=== PATIENT | male | born 1960 | race Caucasian/White ===

== ENCOUNTER 2024-12-30 08:21 | Emergency (ER) | payer OTHER ==
[2024-12-30] MEDS ORDERED: ONDANSETRON 4 MG/2 ML VIAL ONE (09:46)
[2024-12-30] MEDS ORDERED: NA CHLORIDE 0.9% 1,000 ML ONE (09:47)
[2024-12-30] MEDS ORDERED: FAMOTIDINE 20 MG/2 ML VIAL IV ONE (09:47)
[2024-12-30] MEDS ORDERED: MORPHINE 4 MG/ML SYR ONE (09:47)
[2024-12-30] MEDS ORDERED: HYDROMORPHONE HCL 1 MG/ML INJ ONE (10:27)
[2024-12-30 10:29] LABS: Albumin 3.5 g/dL (3.4-5.0); Albumin/Globulin Ratio 0.8 (1.1-1.8); Anion Gap 9.8 mEq/L (5.0-15.0); Bilirubin Direct 0.2 mg/dL (0-0.2); Bilirubin Indirect, Calculated 0.9 mg/dL (0.2-0.8); Bilirubin Total 1.1 mg/dL (0.2-1.0); Globulin 4.2 g/dL (2.3-3.5); Magnesium 2.2 mg/dL (1.6-2.4); Potassium 3.8 mEq/L (3.5-5.1); Protein, Total 7.7 g/dL (6.4-8.2); Troponin High Sensitivity 4.1 pg/mL (<58.9)
[2024-12-30 10:34] LABS: Absolute Basophils 0.1 K/uL (0-0.5); Absolute Eosinophils 0.1 K/uL (0-0.5); Absolute Lymphocytes (CBC) 2.6 K/uL (0.7-4.9); Absolute Monocytes 1.1 K/uL (0.1-1.3); Absolute Neutrophil 6.3 K/uL (1.8-8.0); Basophils % 0.6 % (0-1.3); Eosinophils % 1.4 % (0-4.4); Hematocrit 46.2 % (39.6-49.0); Hemoglobin 16.3 g/dL (13.6-17.9); Lymphocytes % 25.3 % (15.3-44.8); MCH 32.6 pg (27.0-35.0); MCHC 35.2 g/dL (32.0-36.0); MCV 92.6 fL (80-100); MPV 8.8 fL (7.6-11.3); Monocytes % 11.1 % (3.3-12.3); Neutrophils % 61.6 % (41.7-73.7); Nucleated Red Blood Cells % 0.1 % (0-0); Platelets 229 thou/uL (152-406); RBC Red Blood Cell Count 4.99 M/uL (4.33-5.43); Red Cell Distribution Width 13.7 % (12.1-15.2)
[2024-12-30 10:39] LABS: PT Prothrombin Time 12.8 SECONDS (9.4-12.5); Protime INR 1.22
--- NOTE | 2024-12-30 10:43 | RAD REPORT ---
Procedure: Chest Single View HISTORY: Abdominal pain COMPARISON: none FINDINGS: The lungs appear clear of acute infiltrate. No significant pleural effusion noted. The heart is normal size. IMPRESSION: No acute abnormality is displayed.
--- NOTE | 2024-12-30 11:52 | RAD REPORT ---
EXAMINATION: CT ABDOMEN AND PELVIS WITH CONTRAST CLINICAL INDICATION: Abdominal pain TECHNIQUE: CT abdomen and pelvis was performed, after the administration of 100 cc Isovue-300.. Sagit renetta and coronal reconstructions were obtained. One or more of the following dose reduction techniques were used: Automated exposure control, adjustment of the mA and kV according to patient si ze, and iterative reconstruction. Unless otherwise specified, incidental findings do not require dedicated imaging follow-up. [id number]. Oral contrast was not given which limits evaluation of bowel and appendix. COMPARISON: .None FINDINGS: Fatty liver. The wall of the second portion of the duodenum is thickened with moderate stranding in the adjacent f at. No free air. Mild stranding adjacent to the pancreatic head. Adrenals and right kidney unremarkable Small left renal calculus. No hydronephrosis. Normal appendix. Small inguinal hernias No evidence of diverticulitis. Small umbilical hernia : IMPRESSION: Moderate stranding adjacent to the second portion of the duodenum with a thickened wall. Most likely this represents duodenal inflammation. The mild stranding adjacent to the pancreas probably is secondary inflammation. Direct visualization of the duodenum is recommended.
--- NOTE | 2024-12-30 12:22 | RAD REPORT ---
EXAM: Right upper quadrant ultrasound. CLINICAL HISTORY: Abdominal pain COMPARISON: None FINDINGS: A gallstone is not seen. Gallbladder wall not thickened. Biliary tree normal caliber IMPRESSION: No significant abnormalities displayed
[2024-12-30] MEDS ORDERED: MAGNES/ALUMIN/SIMET 30ML UCUP ONE (12:59)
[2024-12-30] MEDS ORDERED: LIDOCAINE VISCOUS 2% 10ML ORAL SOLN ONE (12:59)
--- NOTE | 2024-12-30 13:38 | ER ---
Nurse's Notes [facility] Name: Andrés Batres Age: 64 yrs Sex: Male : 1960 Arrival Date: 12/30/2024 Time: 08:21 Bed 20 Private MD: Diagnosis: Epigastric pain Presentation: 12/30 08:36 Chief complaint: Patient states: Epigastric pain since Monday since N/V/D. Coronavirus ll1 screen: Client denies travel out of the [place] in the last 14 days. At this time, the client does not indicate any symptoms associated with coronavirus-19. Ebola Screen: Patient denies travel to an Ebola-affected area in the 21 days before illness onset. Initial Sepsis Screen: Does the patient meet any 2 criteria? No. Patient's initial sepsis screen is negative. Does the patient have a suspected source of infection? No. Patient's initial sepsis screen is negative. Risk Assessment: Do you want to hurt yourself or someone else? Patient reports no desire to harm self or others. Onset of symptoms was December 27, 2024. 08:36 Method Of Arrival: Ambulatory ll1 08:36 Acuity: JENELLE 3 ll1 Triage Assessment: 12/31 08:36 General: Appears uncomfortable, Behavior is calm, cooperative, appropriate for age. ll1 Pain: Complains of pain in epigastric area. GI: Reports upper abdominal pain, diarrhea, nausea, vomiting. Historical: - Allergies: 12/30 08:36 Compazine; ll1 - PMHx: 08:36 Diabetes mellitus; ll1 - PSHx: 08:36 Major L arm surgeries; ll1 - Immunization history:: Adult Immunizations up to date. - Infectious Disease History:: Denies. - Social history:: Smoking status: Patient denies any tobacco usage or history of. Screenin:30 [facility] ED Fall Risk Assessment (Adult) History of falling in the last 3 months, aa5 including since admission No falls in past 3 months (0 pts) Confusion or Disorientation No (0 pts) Intoxicated or Sedated No (0 pts) Impaired Gait No (0 pts) Mobility Assist Device Used No (0 pt) Altered Elimination No (0 pt) Score/Fall Risk Level 0 - 2 = Low Risk Oriented to surroundings, Maintained a safe environment, Educated pt \T\ family on fall prevention, incl call for assistance when getting out of bed, Assessed \T\ reinforced patient's understanding of fall precautions. Abuse screen: Denies threats or abuse. Nutritional screening: No deficits noted. Tuberculosis screening: No symptoms or risk factors identified. Assessment: 10:30 General: Appears uncomfortable, Behavior is calm, cooperative. Pain: Complains of pain aa5 in epigastric area, right upper quadrant, left upper quadrant, right lower quadrant and left lower quadrant Pain currently is 9 out of 10 on a pain scale. Quality of pain is described as crampy, sharp, Pain began 2-3 days ago. Is intermittent, lasting a few minutes. Noted to be guarding, moaning. Neuro: Level of Consciousness is awake, alert, obeys commands, Oriented to person, place, time, situation. Cardiovascular: Heart tones S1 S2 present Patient's skin is warm and dry. Rhythm is sinus rhythm. Respiratory: Airway is patent Respiratory effort is even, unlabored, Respiratory pattern is regular, symmetrical. GI: Abdomen is round non-distended, Bowel sounds present X 4 quads. Abd is soft and non tender X 4 quads. Reports diarrhea, nausea, vomiting. : No signs and/or symptoms were reported regarding the genitourinary system. EENT: No signs and/or symptoms were reported regarding the EENT system. Derm: Skin is pink, warm \T\ dry. Musculoskeletal: Range of motion: intact in all extremities. 10:45 Reassessment: Patient is alert, oriented x 3, equal unlabored respirations, skin aa5 warm/dry/pink. Patient states feeling better. 10:47 Reassessment: Pt to CT scan. aa5 11:50 Reassessment: Patient is alert, oriented x 3, equal unlabored respirations, skin aa5 warm/dry/pink. Patient states feeling better. 12:54 Reassessment: Patient appears in no apparent distress at this time. Patient and/or kj2 family updated on plan of care and expected duration. Pain level reassessed. Patient is alert, oriented x 3, equal unlabored respirations, skin warm/dry/pink. 13:50 Reassessment: Patient appears in no apparent distress at this time. Patient and/or kj2 family updated on plan of care and expected duration. Pain level reassessed. Patient is alert, oriented x 3, equal unlabored respirations, skin warm/dry/pink. Vital Signs: 08:36 BP 159 / 95; Pulse 87; Resp 17; Temp 97.5; Pulse Ox 100% ; Weight 113.4 kg; Height 6 ll1 ft. 0 in. ; Pain 9/10; 12:55 BP 154 / 86; Pulse 74; Resp 18; Pulse Ox 99% on R/A; kj2 13:50 BP 148 / 82; Pulse 62; Resp 20; Temp 98; Pulse Ox 100% on R/A; kj2 08:36 Body Mass Index 33.91 (113.40 kg, 182.88 cm) ll1 08:36 Pain Scale: Adult ll1 ED Course: 08:23 Patient arrived in ED. im 08:26 Bryant Cordoba PA is PHCP. cp 08:26 Vinny Loza DO is Attending Physician. cp 08:35 Arm band placed on. ll1 08:38 Triage completed. ll1 08:56 XRAY Chest (1 view) In Process Unspecified. EDMS 09:11 US Abdomen Limited In Process Unspecified. EDMS 10:00 No provider procedures requiring assistance completed. Inserted saline lock: 22 gauge kb3 in right forearm, using aseptic technique. Blood collected. Flushed with 10 mL NS Missed attempt(s): 20 gauge in right antecubital area. 10:21 Yamilex Vallecillo, RN is Primary Nurse. aa5 10:30 Patient has correct armband on for positive identification. Bed in low position. Call aa5 light in reach. Side rails up X2. Adult w/ patient. Client placed on continuous cardiac and pulse oximetry monitoring. NIBP monitoring applied. threat monitoring analyst on. Pulse ox on. NIBP on. 10:35 EKG done, by ED staff, reviewed by Bryant GIBBS. aa5 10:42 CT Abd/Pelvis - IV Contrast Only In Process Unspecified. EDMS 12:05 Report given to EMERY Parks. aa5 12:15 Provided Education on: call light. kj2 13:37 Brayan Richardson MD is Referral Physician. cp 13:52 IV discontinued, intact, bleeding controlled, No redness/swelling at site. Pressure kj2 dressing applied. Administered Medications: 10:03 CANCELLED (Physician Discretion): morphineor iv 4 mg IVP once over 4 mins cp 10:08 Drug: NS 0.9% IV 1000 ml IV at 1 bolus Per protocol; to be given as a bolus over 60 kb3 minutes Route: IV; Rate: 1 bolus; Site: right antecubital; 13:52 Follow up: IV Status: Completed infusion; IV Intake: 1000ml kj2 10:08 Drug: Ondansetron IVP 4 mg IVP once; over 2 minutes Route: IVP; Site: right antecubital;kb3 10:35 Follow up: Response: No adverse reaction aa5 10:08 Drug: Famotidine IVP 20 mg IVP once; dilute with 10 mL 0.9% NaCl; give over 2 minutes kb3 Route: IVP; Site: right forearm; 10:35 Follow up: Response: No adverse reaction aa5 10:35 Drug: HYDROmorphone IVP 1 mg IVP once Route: IVP; Site: right forearm; aa5 10:45 Follow up: Response: No adverse reaction; Pain is decreased aa5 13:00 Drug: GI Cocktail without - (Maalox PO 30 ml, Lidocaine Mucous Membrane 2 % 15 kj2 ml) PO once Route: PO; 13:52 Follow up: Response: No adverse reaction kj2 Medication: 10:59 VIS not applicable for this client. aa5 Intake: 13:52 IV: 1000ml; Total: 1000ml. kj2 Outcome: 13:37 Discharge ordered by MD. cp 13:52 Discharged to home ambulatory, with family, kj2 13:52 Condition: stable 13:52 Discharge instructions given to patient, family, Instructed on discharge instructions, follow up and referral plans. medication usage, Demonstrated understanding of instructions, follow-up care, medications, Prescriptions given X 3, 13:58 Patient left the ED. kj2 Signatures: Dispatcher [employer] EDMS Yamilex Vallecillo RN RN aa5 Bryant Cordoba PA PA cp Jax Vinson RN RN ll1 Shiela Tanner RN RN kb3 Susu De Santiago Krystal, RN RN kj2 Corrections: (The following items were deleted from the chart) 10:52 10:35 HYDROmorphone IVP 1 mg IVP in right antecubital aa5 aa5
--- NOTE | 2024-12-30 13:38 | EDPHYS ---
Physician Documentation [facility] Name: Andrés Batres Age: 64 yrs Sex: Male : 1960 Arrival Date: 12/30/2024 Time: 08:21 Bed 20 Private MD: ED Physician Vinny Loza HPI: 12/30 08:40 This 64 yrs old Male presents to ER via Ambulatory with complaints of Abdominal Pain, cp Epigastric Pain, Vomiting. 08:40 The patient presents with abdominal pain in the epigastric area, in the upper abdomen. cp Onset: The symptoms/episode began/occurred 3 day(s) ago. The symptoms radiate to back. Associated signs and symptoms: Pertinent positives: nausea and vomiting, diarrhea. The symptoms are described as constant. Historical: - Allergies: 08:36 Compazine; ll1 - PMHx: 08:36 Diabetes mellitus; ll1 - PSHx: 08:36 Major L arm surgeries; ll1 - Immunization history:: Adult Immunizations up to date. - Infectious Disease History:: Denies. - Social history:: Smoking status: Patient denies any tobacco usage or history of. ROS: 08:45 Constitutional: Negative for body aches, chills, fever, poor PO intake, cp 08:45 Eyes: Negative for injury, pain, redness, and discharge, cp 08:45 Cardiovascular: Negative for chest pain, edema, palpitations, 08:45 Respiratory: Negative for cough, shortness of breath, wheezing, 08:45 Abdomen/GI: Positive for abdominal pain, nausea, vomiting, and diarrhea, of the epigastric area, 08:45 Back: Positive for radiated pain, cp 08:45 : Negative for urinary symptoms, testicular pain 08:45 Neuro: Negative for altered mental status, dizziness, headache, numbness, syncope, weakness, 08:45 All other systems are negative, Exam: 09:00 Constitutional: The patient appears in no acute distress, alert, awake, cp non-diaphoretic, non-toxic, well developed, well nourished, uncomfortable, 09:00 Head/Face: Normocephalic, atraumatic. cp 09:00 Eyes: Periorbital structures: appear normal, Conjunctiva: normal, no exudate, no injection, Sclera: no appreciated abnormality, Lids and lashes: appear normal, bilaterally, 09:00 ENT: External ear(s): are unremarkable, Nose: is normal, Mouth: Lips: moist, Oral mucosa: moist, Posterior pharynx: Airway: no evidence of obstruction, patent, swelling, is not appreciated, erythema, is not appreciated, exudate, is not appreciated, 09:00 Chest/axilla: Inspection: normal, 09:00 Cardiovascular: Rate: normal, Rhythm: regular, Edema: is not appreciated, JVD: is not appreciated, 09:00 Respiratory: the patient does not display signs of respiratory distress, Respirations: normal, no use of accessory muscles, no retractions, labored breathing, is not present, Breath sounds: are clear throughout, no decreased breath sounds, no stridor, no wheezing, 09:00 Abdomen/GI: Inspection: abdomen appears normal, Bowel sounds: active, all quadrants, Palpation: soft, in all quadrants, severe abdominal tenderness, in the epigastric area, rebound tenderness, is not appreciated, involuntary guarding, is not appreciated, 09:00 Back: CVA tenderness, is absent, 09:00 Neuro: Orientation: to person, place \T\ time. Mentation: is normal, Cerebellar function: is grossly normal, Motor: moves all fours, strength is normal, Sensation: is normal, 10:42 ECG was reviewed by the Attending Physician. Vital Signs: 08:36 BP 159 / 95; Pulse 87; Resp 17; Temp 97.5; Pulse Ox 100% ; Weight 113.4 kg; Height 6 ll1 ft. 0 in. ; Pain 9/10; 12:55 BP 154 / 86; Pulse 74; Resp 18; Pulse Ox 99% on R/A; kj2 13:50 BP 148 / 82; Pulse 62; Resp 20; Temp 98; Pulse Ox 100% on R/A; kj2 08:36 Body Mass Index 33.91 (113.40 kg, 182.88 cm) ll1 08:36 Pain Scale: Adult ll1 MDM: 08:38 Medical Screening Exam initiated cp 09:00 Differential diagnosis: acute coronary syndrome, appendicitis, bowel obstruction, cp cholecystitis, Cholelithiasis, gastritis, gastroesophageal reflux disease, GI Bleed, non-specific abd pain, pancreatitis, Peptic Ulcer Disease, Perf. Duodenal Ulcer, Perf. Gastric Ulcer. 13:36 Data reviewed: vital signs, nurses notes, lab test result(s), EKG, radiologic studies, cp CT scan, plain films, ultrasound, and as a result, I will discharge patient. 13:36 Consideration of Admission/Observation Escalation of care including cp admission/observation considered. I considered the following discharge prescriptions or medication management in the emergency department Medications were administered in the Emergency Department. See MAR. Care significantly affected by the following chronic conditions: Diabetes. Counseling: I had a detailed discussion with the patient and/or guardian regarding the historical points, exam findings, and any diagnostic results supporting the discharge/admit diagnosis, lab results, radiology results, the need for outpatient follow up, for definitive care, a patient safety officer, to return to the emergency department if symptoms worsen or persist or if there are any questions or concerns that arise at home. Response to treatment: the patient's symptoms have markedly improved after treatment, and as a result, I will discharge patient. Special discussion: Based on the patient's Hx, exam, and Dx evaluation, there is no indication for emergent surgery or inpatient Tx. It is understood by the patient/guardian that if the Sx's persist or worsen they need to return immediately for re-evaluation. 12/30 08:43 Order name: Basic Metabolic Panel; Complete Time: 11: cp 12/30 11:03 Interpretation: Normal except: NA 135; GLUC 169. cp 12/30 08:43 Order name: CBC with Diff; Complete Time: 11: cp 12/30 11:03 Interpretation: Reviewed. cp 12/30 08:43 Order name: LFT's; Complete Time: 11: cp 12/30 11:03 Interpretation: Normal except: BILIT 1.1; IBILI, CALC 0.9; GLOB 4.2; A/G 0.8. cp 12/30 08:43 Order name: Magnesium; Complete Time: 11: cp 12/30 08:43 Order name: PT-INR; Complete Time: 11: cp / 08:43 Order name: Troponin HS; Complete Time: 11: cp / 08:43 Order name: Lipase; Complete Time: 11: cp / 11:03 Interpretation: Reviewed. cp 12/30 08:43 Order name: XRAY Chest (1 view); Complete Time: 11: cp 12/30 08:43 Order name: US Abdomen Limited; Complete Time: 12:23 cp 0203 12:23 Interpretation: Report reviewed. cp 02 08:43 Order name: CT Abd/Pelvis - IV Contrast Only; Complete Time: 12:23 cp 12/30 08:43 Order name: Cardiac monitoring; Complete Time: 10:21 cp 12/30 08:43 Order name: EKG - Nurse/Tech; Complete Time: 10:41 cp 12/30 08:43 Order name: IV Saline Lock; Complete Time: 10:36 cp 12/30 08:43 Order name: Labs collected and sent; Complete Time: 10:36 cp 12/30 08:43 Order name: O2 Per Protocol; Complete Time: 10:21 cp 12/30 08:43 Order name: O2 Sat Monitoring; Complete Time: 10:21 cp 12/30 08:43 Order name: NPO; Complete Time: 09:44 cp EC:42 Rate is 80 beats/min. Rhythm is regular. PA interval is normal. QRS interval is normal. cp QT interval is normal. T waves are Inverted in lead aVR. Interpreted by me. Reviewed by me. Administered Medications: 10:03 CANCELLED (Physician Discretion): morphineor iv 4 mg IVP once over 4 mins cp 10:08 Drug: NS 0.9% IV 1000 ml IV at 1 bolus Per protocol; to be given as a bolus over 60 kb3 minutes Route: IV; Rate: 1 bolus; Site: right antecubital; 13:52 Follow up: IV Status: Completed infusion; IV Intake: 1000ml kj2 10:08 Drug: Ondansetron IVP 4 mg IVP once; over 2 minutes Route: IVP; Site: right antecubital;kb3 10:35 Follow up: Response: No adverse reaction aa5 10:08 Drug: Famotidine IVP 20 mg IVP once; dilute with 10 mL 0.9% NaCl; give over 2 minutes kb3 Route: IVP; Site: right forearm; 10:35 Follow up: Response: No adverse reaction aa5 10:35 Drug: HYDROmorphone IVP 1 mg IVP once Route: IVP; Site: right forearm; aa5 10:45 Follow up: Response: No adverse reaction; Pain is decreased aa5 13:00 Drug: GI Cocktail without - (Maalox PO 30 ml, Lidocaine Mucous Membrane 2 % 15 kj2 ml) PO once Route: PO; 13:52 Follow up: Response: No adverse reaction kj2 Disposition: 14:45 I was immediately available on-site in the Emergency Department for consultation in the ms3 care of the patient. Disposition Summary: 12/30/24 13:37 Discharge Ordered Notes: Location: Home cp Problem: new cp Symptoms: have improved cp Condition: Stable cp Diagnosis - Epigastric pain cp Followup: cp - With: Brayan Richardson MD - When: 5 - 6 days - Reason: Recheck today's complaints Discharge Instructions: - Discharge Summary Sheet cp - Abdominal Pain, Adult cp - Gastritis, Adult cp Forms: - Medication Reconciliation Form cp - Antibiotic Education cp - Prescription Opioid Use cp - Patient Portal Instructions cp - Leadership Thank You Letter cp Prescriptions: - Carafate 1 gram Oral tablet - take 1 tablet ORAL route 4 times per day take on an empty stomach, beginning on cp waking and last dose at bedtime. dissolve tablet in 6 ounces warm water prior to ingestion; 100 tablet; Refills: 0, Product Selection Permitted - Protonix 40 mg Oral tablet, delayed release (enteric coated) - take 1 tablet ORAL route every 12 hours for 14 days; 28 tablet; Refills: 0, cp Product Selection Permitted - Zofran 4 mg Oral Tablet - take 1 tablet ORAL route every 12 hours As needed; 20 tablet; Refills: 0, cp Product Selection Permitted Signatures: Dispatcher [employer] EDYamilex Lagos, RN RN aa5 Bryant Cordoba PA PA cp Lewis, Lynsay, RN RN ll1 Vinny Loza DO DO ms3 Shiela Tanner RN RN kb3 Kasey Stanford, EMERY RN kj2 Corrections: (The following items were deleted from the chart) 08:43 08:43 BASIC METABOLIC PANEL+C.LAB.BRZ ordered. EDMS EDMS 08:43 08:43 CBC+H.LAB.BRZ ordered. EDMS EDMS 08:43 08:43 HEPATIC FUNCTION+C.LAB.BRZ ordered. EDMS EDMS 08:43 08:43 MAGNESIUM+C.LAB.BRZ ordered. EDMS EDMS 08:43 08:43 PROTIME (+INR)+COAG.LAB.BRZ ordered. EDMS EDMS 08:43 08:43 Troponin High Sensitivity+C.LAB.BRZ ordered. EDMS EDMS 08:43 08:43 LIPASE+C.LAB.BRZ ordered. EDMS EDMS 08:43 08:43 Chest Single View+RAD.RAD.BRZ ordered. EDMS EDMS 08:43 08:43 Abdomen Limited+US.RAD.BRZ ordered. EDMS EDMS 08:44 08:44 Abdomen Pelvis W Con+CT.RAD.BRZ ordered. EDMS EDMS 10:03 09:41 morphine IVP or IV 4 mg IVP once over 4 mins ordered. cp cp
[2024-12-30 15:10] VITALS: BP 148/82; TEMP 98; O2SAT 100
--- NOTE | 2024-12-31 12:14 | EKG ---
Test Date: 2024-12-30 Test Time: 10:35:37 Marketing Research Coordinator: CHIP MEASUREMENT RESULTS: Intervals: Rate: 80 SD: 162 QRSD: 86 QT: 376 QTc: 433 [place]: P: 55 SD: 162 QRS: 53 T: 38 INTERPRETIVE STATEMENTS: Normal sinus rhythm Normal ECG No previous ECG available for comparison Electronically Signed On 12-31-24 12:12:29 [employer]ISSI[employer] by Santiago Stephen
== END 2024-12-30 13:58 | disposition home or self-care (01) ==
LOC: ER 08:21
DX: R10.13 Epigastric pain (principal); R11.2 Nausea with vomiting, unspecified; E11.9 Type 2 diabetes mellitus without complications
CPT/HCPCS: 93005; 85025; 80048; 36415; 83735; 85610; 80076; 84484; 83690; 74177; 71045; 76705; 99285; Q9967; J1171; J2405; J7030